=== PATIENT | male | born 1950 | race Caucasian/White ===

== ENCOUNTER 2021-02-05 09:44 | Emergency (ER) | payer OTHER ==
[~2021-02-05 09:44] MED LIST: ASCORBIC ACID500 MG PO; COUMADIN6 MG PO; COZAAR50 MG PO; CRESTOR40 M1 PO; CYCLOBENZAPRINE5 MG PO; NOVOLOG VI100 UNIT/1 SC; PLAVIX75 MG PO; PROSCAR5 MG PO; SPIRIVA 18MCG18 MCG INH; SYNTHROID150 MCG PO; TAMSULOSIN HCL0.4 MG PO; TOPROL XL 25MG25 MG PO; TORSEMIDE20 MG PO; TRESIBA FL200 UNIT/1 SC; ZOLOFT100 MG PO; [UNRECOGNIZED DRUG - OTHER]
[2021-02-05 10:31] LABS: BASOPHIL 0.4 % (0-2); EOSINOPHIL 0.7 % (0-7); HCT 33.1 % (42.0-52.0); HGB 11.6 g/dl (13.2-18.0); LYMPHOCYTE 23.9 % (15-48); MCH 29.5 pg (25.0-31.0); MCV 84.2 fL (78.0-100.0); MONOCYTE 9.2 % (0-12); MPV 9.1 fL (6.0-9.5); NEUTROPHIL 65.4 % (41-80); NRBC 0; PLT 149 K/uL (150-400); RBC 3.93 M/uL (4.70-6.00); RDW 14.8 % (11.5-14.0); WBC 5.6 K/uL (4.0-10.5)
[2021-02-05 10:48] LABS: BUN 43 mg/dL (7-18); BUN/CREAT RATIO (CALC) 29.1 RATIO; C-REACTIVE PROTEIN <0.20 mg/dL (<=0.90); CHLORIDE 97 mmol/L (98-107); CO2 (BICARBONATE) 27 mmol/L (21-32); CREATININE 1.48 mg/dL (0.67-1.17); GLUCOSE 442 mg/dL (74-106); POTASSIUM 4.4 mmol/L (3.5-5.1)
[2021-02-05] MEDS ORDERED: CLEOCIN300 MG PO (11:16)
== END 2021-02-05 11:55 | disposition home or self-care (01) ==
LOC: FER 09:44
PROVIDERS: Emergency Medicine
DX: E11.621 Type 2 diabetes mellitus with foot ulcer (principal); L97.429 Non-pressure chronic ulcer of left heel and midfoot with unspecified severity; I70.90 Unspecified atherosclerosis; I10 Essential (primary) hypertension; Z95.5 Presence of coronary angioplasty implant and graft; Z95.1 Presence of aortocoronary bypass graft; Z89.422 Acquired absence of other left toe(s); Z87.891 Personal history of nicotine dependence
CPT/HCPCS: 36415; 73630; 80048; 85025; 86140; J7030

== ENCOUNTER 2021-04-17 20:09 | Inpatient (IN) | payer OTHER ==
[~2021-04-17] VITALS: Ht 177.8 cm; Wt 107.7 kg
[~2021-04-17 20:09] MED LIST changes: +CLEOCIN300 MG PO
[2021-04-17 20:32] LABS: BASOPHIL 0.1 % (0-2); EOSINOPHIL 0.1 % (0-7); HCT 35.1 % (42.0-52.0); HGB 12.1 g/dl (13.2-18.0); LYMPHOCYTE 5.3 % (15-48); MCH 28.5 pg (25.0-31.0); MCHC 34.5 g/dL (32.0-36.0); MCV 82.6 fL (78.0-100.0); MONOCYTE 8.6 % (0-12); MPV 8.9 fL (6.0-9.5); NEUTROPHIL 85.5 % (41-80); NRBC 0; PLT 184 K/uL (150-400); RBC 4.25 M/uL (4.70-6.00); RDW 14.9 % (11.5-14.0); WBC 13.9 K/uL (4.0-10.5)
[2021-04-17 21:03] LABS: LACTIC ACID 1.2 mmol/L (0.4-1.9)
[2021-04-17 21:07] LABS: ALBUMIN 3.5 g/dL (3.4-5.0); BILIRUBIN - TOTAL 0.8 mg/dL (0.2-1.0); BUN/CREAT RATIO (CALC) 22.8 RATIO; C-REACTIVE PROTEIN 10.7 mg/dL (<=0.90); CREATININE 1.45 mg/dL (0.67-1.17); POTASSIUM 4.9 mmol/L (3.5-5.1); TOTAL PROTEIN 7.5 g/dL (6.4-8.2)
[2021-04-17 23:03] LABS: BILIRUBIN 1+ mg/dL (NEGATIVE); BLOOD 3+ Ery/uL (NEGATIVE); CLARITY CLEAR (CLEAR); COLOR YELLOW (YELLOW); GLUCOSE (U) 3+ mg/dL (NORMAL); LEUKOCYTES 1+ Leu/uL (NEGATIVE); NITRITE NEGATIVE (NEGATIVE); PROTEIN TRACE (LOW) mg/dL (NEGATIVE); UROBILINOGEN 0.2 mg/dL (0.2-1.0); pH 5.5 (5.0-9.0)
[2021-04-17 23:11] LABS: AMORPHOUS URATES CRYSTALS LARGE; BACTERIA 2+; SQUAMOUS EPITHELIAL CELLS RARE; URINARY WBC 20-50
[2021-04-17 23:59] LABS: INR 2.45 (0.9-1.2); PROTHROMBIN TIME 25.3 SECONDS (11.4-13.6)
[2021-04-18] MEDS ORDERED: ALDACTONE100 MG PO (01:47)
[2021-04-18] MEDS ORDERED: WARFARIN SODIUM6 MG PO (01:50)
[2021-04-18 06:08] LABS: BASOPHIL 0.2 % (0-2); EOSINOPHIL 0 % (0-7); HCT 30.7 % (42.0-52.0); HGB 10.3 g/dl (13.2-18.0); LYMPHOCYTE 15.5 % (15-48); MCH 28.5 pg (25.0-31.0); MCHC 33.6 g/dL (32.0-36.0); MCV 84.8 fL (78.0-100.0); MONOCYTE 8.9 % (0-12); MPV 9.4 fL (6.0-9.5); NEUTROPHIL 74.7 % (41-80); NRBC 0; PLT 156 K/uL (150-400); RBC 3.62 M/uL (4.70-6.00); RDW 15.1 % (11.5-14.0); WBC 12.3 K/uL (4.0-10.5)
[2021-04-18 06:13] LABS: INR 2.52 (0.9-1.2); PROTHROMBIN TIME 25.9 SECONDS (11.4-13.6)
[2021-04-18 06:16] LABS: BUN/CREAT RATIO (CALC) 22.1 RATIO; CREATININE 1.63 mg/dL (0.67-1.17); MAGNESIUM 1.8 mg/dL (1.8-2.4); POTASSIUM 4.1 mmol/L (3.5-5.1)
[2021-04-18 06:30] LABS: BAND 3 % (0-10); NEUTROPHILS(M) 71 % (41-80)
[2021-04-18 06:31] LABS: ANISOCYTOSIS SLIGHT; LYMPHOCYTE(M) 15 % (15-48); MONOCYTE(M) 11 % (0-12); PLATELET ESTIMATE NORMAL; PLATELET MORPHOLOGY NORMAL
[2021-04-19 06:41] LABS: INR 2.67 (0.9-1.2); PROTHROMBIN TIME 27.1 SECONDS (11.4-13.6)
[2021-04-20 06:17] LABS: INR 3.44 (0.9-1.2); PROTHROMBIN TIME 33.1 SECONDS (11.4-13.6)
--- NOTE | 2021-04-20 12:53 | NUR ---
04/20/21 Mr. Son lives with his brother. He is current with [facility] and would like to continue with their services. Affliation is understood. [facility] Pt has [facility] electric w/c, hospital bed, rw, 3in1, s. chair and cane. - [facility] was notified of today's discharge.
[2021-04-20] MEDS ORDERED: LEVAQUIN500 MG PO (14:21)
[2021-04-20] MEDS ORDERED: JANTOVEN3 MG PO (14:21)
[2021-04-20] MEDS ORDERED: PERCOCET 5-3251 EACH PO (14:21)
== END 2021-04-20 17:09 | disposition home health service (06) | DRG 637 ==
LOC: FER 20:09 → FMS 23:59
PROVIDERS: Allergy & Immunology; Emergency Medicine Emergency Medical Services; ADMIT Internal Medicine
DX: E11.69 Type 2 diabetes mellitus with other specified complication (principal); G93.41 Metabolic encephalopathy; M86.8X7 Other osteomyelitis, ankle and foot; L97.429 Non-pressure chronic ulcer of left heel and midfoot with unspecified severity; I48.20 Chronic atrial fibrillation, unspecified; N39.0 Urinary tract infection, site not specified; N17.9 Acute kidney failure, unspecified; E11.22 Type 2 diabetes mellitus with diabetic chronic kidney disease; I12.9 Hypertensive chronic kidney disease with stage 1 through stage 4 chronic kidney disease, or unspecified chronic kidney disease; N18.30 Chronic kidney disease, stage 3 unspecified; R31.9 Hematuria, unspecified; B96.20 Unspecified Escherichia coli [E. coli] as the cause of diseases classified elsewhere; E11.621 Type 2 diabetes mellitus with foot ulcer; I25.10 Atherosclerotic heart disease of native coronary artery without angina pectoris; J44.9 Chronic obstructive pulmonary disease, unspecified; Z20.822 Contact with and (suspected) exposure to COVID-19; E78.5 Hyperlipidemia, unspecified; E03.9 Hypothyroidism, unspecified; N40.0 Benign prostatic hyperplasia without lower urinary tract symptoms; G89.29 Other chronic pain; M54.9 Dorsalgia, unspecified; Z79.4 Long term (current) use of insulin; Z95.1 Presence of aortocoronary bypass graft; Z88.8 Allergy status to other drugs, medicaments and biological substances; Z87.891 Personal history of nicotine dependence; Z80.0 Family history of malignant neoplasm of digestive organs; Z79.01 Long term (current) use of anticoagulants; I25.2 Old myocardial infarction; Z89.422 Acquired absence of other left toe(s); Z89.421 Acquired absence of other right toe(s); Z89.412 Acquired absence of left great toe; Z89.411 Acquired absence of right great toe
CPT/HCPCS: 36415; 70450; 71045; 73630; 73718; 80048; 80053; 80202; 81001; 82962; 83605; 83735; 84145; 84484; 85025; 85610; 85730; 86140; 87040; 87076; 87077; 87088; 87186; 93005; 94640; J0692; J1170; J3370; J7030; J7040; J7050; U0002